=== PATIENT | female | born 1930 | race Caucasian/White ===

== ENCOUNTER 2017-10-01 13:16 | Emergency (ER) | payer MEDICARE, OTHER ==
[~2017-10-01] VITALS: Ht 149.9 cm; Wt 57.3 kg
[~2017-10-01 13:16] MED LIST: Z.0.NO CURRENT MEDS
[2017-10-01 13:19] VITALS: BP 160/68; PULSE 89; RESP 16; TEMP 98.4; O2SAT 96
--- NOTE | 2017-10-01 14:02 | RADRPT ---
EXAM DATE/TIME: 10/01/2017 13:48 [place] COMPARISON: [facility] SWALLOW W/SPEECH PATHOLOGY, March 04, 2016, 0:00. INDICATIONS : Cough for 2 weeks. MEDICAL HISTORY : None. SURGICAL HISTORY : None. ENCOUNTER: Initial ACUITY: 2 weeks PAIN SCORE: 1/10 LOCATION: Bilateral chest FINDINGS: The heart is normal in size. The mediastinal contours are within normal limits. There are advanced CO PD changes within the pulmonary parenchyma. There degenerative changes in the thoracic spine with a mild thoracolumbar scoliosis. CONCLUSION: 1. Advanced COPD changes. No focal or segmental pneumonia identified. Romeo Darby MD on October 01, 2017 at 14:00 Board Certified Radiologist. This report was verified electronically.
[2017-10-01 15:15] LABS: BASOPHIL % 0.7 % (0.0-2.0); HEMATOCRIT 32.4 % (35.0-46.0); LYMPH % 27.3 % (9.0-44.0); LYMPHOCYTE # 0.9 TH/MM3 (1.0-4.8); MEAN CELL VOLUME 54.6 FL (80.0-100.0); MEAN CORPUSCULAR HEMOGLOBIN 18.5 PG (27.0-34.0); MEAN CORPUSCULAR HGB CONC 33.8 % (32.0-36.0); MEAN PLATELET VOLUME 10.2 FL (7.0-11.0); MONO % 8.7 % (0.0-8.0); MONOCYTE # 0.3 TH/MM3 (0-0.9); NEUT % 63.3 % (16.0-70.0); PLATELET COUNT 170 TH/MM3 (150-450); RED BLOOD COUNT 5.93 MIL/MM3 (4.00-5.30); RED CELL DISTRIBUTION WIDTH 17.4 % (11.6-17.2); WHITE BLOOD COUNT 3.2 TH/MM3 (4.0-11.0)
[2017-10-01 15:55] LABS: ALBUMIN 3.9 GM/DL (3.4-5.0); ALKALINE PHOSPHATASE 60 U/L (45-117); ALT (GPT) 24 U/L (10-53); AST (GOT) 30 U/L (15-37); BLOOD UREA NITROGEN 27 MG/DL (7-18); CALCIUM 8.6 MG/DL (8.5-10.1); CHLORIDE 105 MEQ/L (98-107); CREATININE 1.01 MG/DL (0.50-1.00); GLOMERULAR FILTRATION RATE 52 ML/MIN (>89); GLUCOSE,RANDOM 96 MG/DL (74-106); SODIUM (NA) 138 MEQ/L (136-145); TOTAL BILIRUBIN ADULT 0.8 MG/DL (0.2-1.0); TOTAL PROTEIN 7.9 GM/DL (6.4-8.2)
[2017-10-01 16:25] LABS: KERATOCYTES OCC (NORMAL); OVALOCYTES 2+ (NORMAL)
[2017-10-01 17:15] VITALS: BP 210/95; PULSE 72; RESP 24; O2SAT 93; O2SAT 98
[2017-10-01] MEDS ORDERED: SODIUM CHLORID 0.9% 500 ML INJ 500 ML IV ONE (17:15)
[2017-10-01] MEDS ORDERED: SODIUM CHLORIDE 0.9% FLUSH 10 ML FLUSH IV FLUSH PRN (17:15)
--- NOTE | 2017-10-01 17:50 | PD ---
HPI Chief Complaint: Cold / Flu Symptoms Time Seen by Provider: 16:39 Travel History International Travel<30 days: No Contact w/Intl Traveler<30days: No Traveled to known affect area: No History of Present Illness HPI 87-year-old female presents the ED for evaluation of 2 week history of nonproductive cough, sinus congestion, rhinorrhea. Endorses accompanying nausea and a few episodes of watery diarrhea daily. She endorses fever of 99.9 by oral thermometer a few days ago. She denies ear pain, sore throat, chest pain, shortness of breath, palpitations, abdominal pain, dysuria. She did not receive this years flu shot. She states that she's been staying home to try to stay well. Daughter is at bedside and states that her mother's been very weak. PFSH Past Medical History Blood Disorders: Yes (THALACEMIA) Anxiety: Yes Cancer: No Cardiovascular Problems: No Cerebrovascular Accident: Yes (SUBDURAL HEMATOMA) Diminished Hearing: No Genitourinary: No Headaches: Yes Reproductive: No Respiratory: No Thyroid Disease: Yes Menopausal: Yes : 3 Para: 3 Past Surgical History Genitourinary Surgery: Yes (Hemorroid sx) Hysterectomy: Yes Neurologic Surgery: Yes (SUBDURAL HEMATOMA) Social History Alcohol Use: No Tobacco Use: No Substance Use: No Allergies-Medications (Allergen,Severity, Reaction): Coded Allergies: penicillin G (Unverified Allergy, Mild, 10/01/17) Reported Meds & Prescriptions Reported Meds & Active Scripts Active Tessalon Perles (Benzonatate) 100 Mg Cap 200 Mg PO TID PRN Keflex (Cephalexin) 500 Mg Cap 500 Mg PO Q12H 5 Days Review of Systems Except as stated in HPI: all other systems reviewed are Neg Physical Exam Narrative GENERAL: Well-nourished, well-developed petite, thin white female in no acute distress. SKIN: Focused skin assessment warm/dry. HEAD: Normocephalic. EYES: No scleral icterus. No injection or drainage. NECK: Supple, trachea midline. No JVD or lymphadenopathy. CARDIOVASCULAR: Regular rate and rhythm without murmurs, gallops, or rubs. RESPIRATORY: Breath sounds clear and equal bilaterally. No accessory muscle use. GASTROINTESTINAL: Abdomen soft, non-tender, nondistended. Active bowel sounds. MUSCULOSKELETAL: No cyanosis, or edema. Moves extremities spontaneously. BACK: Nontender without obvious deformity. No CVA tenderness. Data Data Last Documented VS Vital Signs Date Time Temp Pulse Resp B/P (MAP) Pulse Ox O2 Delivery O2 Flow Rate FiO2 10/01/17 20:11 68 18 168/96 (120) 98 Room Air 10/01/17 19:38 97.8 Orders Orders Complete Blood Count With Diff (10/01/17 13:31) Comprehensive Metabolic Panel (10/01/17 13:31) Lipase (10/01/17 13:31) Urinalysis - C+S If Indicated (10/01/17 13:31) Influenzae A/B Antigen (10/01/17 13:31) Chest, Pa & Lat (10/01/17 ) Electrocardiogram (10/01/17 ) Iv Access Insert/Monitor (10/01/17 17:13) Ecg Monitoring (10/01/17 17:13) Oximetry (10/01/17 17:13) Sodium Chloride 0.9% Flush (Ns Flush) (10/01/17 17:15) Sodium Chlorid 0.9% 500 Ml Inj (Ns 500 M (10/01/17 17:15) Urine Culture (10/01/17 17:40) Ceftriaxone Inj (Rocephin Inj) (10/01/17 18:30) Ed Discharge Order (10/01/17 19:25) Labs Laboratory Tests Test 10/01/17 14:40 10/01/17 17:40 White Blood Count 3.2 TH/MM3 Red Blood Count 5.93 MIL/MM3 Hemoglobin 11.0 GM/DL Hematocrit 32.4 % Mean Corpuscular Volume 54.6 FL Mean Corpuscular Hemoglobin 18.5 PG Mean Corpuscular Hemoglobin Concent 33.8 % Red Cell Distribution Width 17.4 % Platelet Count 170 TH/MM3 Mean Platelet Volume 10.2 FL Neutrophils (%) (Auto) 63.3 % Lymphocytes (%) (Auto) 27.3 % Monocytes (%) (Auto) 8.7 % Eosinophils (%) (Auto) 0.0 % Basophils (%) (Auto) 0.7 % Neutrophils # (Auto) 2.0 TH/MM3 Lymphocytes # (Auto) 0.9 TH/MM3 Monocytes # (Auto) 0.3 TH/MM3 Eosinophils # (Auto) 0.0 TH/MM3 Basophils # (Auto) 0.0 TH/MM3 CBC Comment AUTO DIFF Differential Comment AUTO DIFF CONFIRMED Ovalocytes 2+ Keratocytes OCC Blood Urea Nitrogen 27 MG/DL Creatinine 1.01 MG/DL Random Glucose 96 MG/DL Total Protein 7.9 GM/DL Albumin 3.9 GM/DL Calcium Level 8.6 MG/DL Alkaline Phosphatase 60 U/L Aspartate Amino Transf (AST/SGOT) 30 U/L Alanine Aminotransferase (ALT/SGPT) 24 U/L Total Bilirubin 0.8 MG/DL Sodium Level 138 MEQ/L Potassium Level 3.6 MEQ/L Chloride Level 105 MEQ/L Carbon Dioxide Level 26.0 MEQ/L Anion Gap 7 MEQ/L Estimat Glomerular Filtration Rate 52 ML/MIN Lipase 180 U/L Urine Color YELLOW Urine Turbidity CLOUDY Urine pH 5.5 Urine Specific Golden 1.025 Urine Protein 100 mg/dL Urine Glucose (UA) NEG mg/dL Urine Ketones 10 mg/dL Urine Occult Blood SMALL Urine Nitrite POS Urine Bilirubin NEG Urine Urobilinogen 2.0 MG/DL Urine Leukocyte Esterase SMALL Urine RBC 2 /hpf Urine WBC 7 /hpf Urine Squamous Epithelial Cells 20 /hpf Urine Amorphous Sediment FEW Urine Bacteria MANY /hpf Urine Hyaline Casts 5 /lpf Urine Mucus FEW /lpf Microscopic Urinalysis Comment CULTURE INDICATED MDM Medical Decision Making Medical Screen Exam Complete: Yes Emergency Medical Condition: Yes Medical Record Reviewed: Yes Differential Diagnosis Viral syndrome versus influenza versus pneumonia versus metabolic derangement versus dehydration versus infectious diarrhea versus other Narrative Course 87-year-old female presents the ED for evaluation of 2 week history of nonproductive cough, sinus congestion, rhinorrhea. Endorses accompanying nausea and a few episodes of watery diarrhea daily. She endorses fever of 99.9 by oral thermometer a few days ago. Patient is afebrile, pulse 89, BP 160/68 on presentation. Physical exam reveals a nontoxic-appearing elderly female in no acute distress. ENT exam is unremarkable. Chest CT AB. Abdomen soft and nontender. IV was established. Patient was administered 500 mL's normal saline. CBC: WBC 3.2, hemoglobin 11.0. CMP: BUN 27, creatinine 1.01. UA: Cloudy, nitrite positive, small leukocyte esterase, 7 WBCs, many bacteria. Culture indicated. I reviewed the patient's record. She has a history of thalassemia. I suggested that she follow-up with her primary care provider regarding the leukopenia found today. She was administered a gram of Rocephin IV. She is provided a short course of Keflex, and a few doses of Tessalon. She is instructed to take all medication as prescribed, follow with her primary care provider, return for worsening symptoms. The patient and her daughter indicated understanding of the instructions and are agreeable to the care plan. The patient is stable and discharged home. Diagnosis Primary Impression: Urinary tract infection Qualified Codes: N39.0 - Urinary tract infection, site not specified Additional Impression: Cough Referrals: Primary Care Physician Patient Instructions: Chronic Cough (ED), General Instructions, Urinary Tract Infection in Women (ED) Additional Instructions: Rest, hydrate. Take antibiotics until all pills are gone. Take Tessalon Perles as prescribed for cough. Follow-up with your primary care provider. Return to the ED for worsening symptoms or any urgent or emergent medical condition. Med/Other Pt SpecificInfo: Prescription(s) given Scripts Benzonatate (Tessalon Perles) 100 Mg Cap 200 MG PO TID Y for COUGH, #15 CAP 0 Refills Prov: Garrett Keene MD 10/01/17 Cephalexin (Keflex) 500 Mg Cap 500 MG PO Q12H for Infection for 5 Days, #10 CAP 0 Refills Prov: Garrett Keene MD 10/01/17 Disposition: 01 DISCHARGE HOME Condition: Stable Coty Escobedo Oct 01, 2017 17:50
[2017-10-01 18:12] LABS: AMORPHOUS SEDIMENT, URINE FEW; BACTERIA, URINE MANY /hpf; BLOOD, URINE SMALL (NEG); GLUCOSE,URINE NEG (NEG); HYALINE CAST, URINE 5 /lpf (RARE); KETONE, URINE 10 mg/dL (NEG); MUCUS URINE FEW /lpf (OCC); NITRITE,URINE POS (NEG); PH, URINE 5.5 (5.0-8.5); SQUAMOUS EPITHELIAL CELL URINE 20 /hpf (0-5); URINE COLOR YELLOW (YELLW/STRAW); URINE LEUKOCYTE ESTERASE SMALL (NEG)
[2017-10-01 18:18] LABS: BILIRUBIN, URINE NEG (NEG)
[2017-10-01] MEDS ORDERED: cefTRIAXone INJ 1,000 MG in SODIUM CHLORIDE 0.9% INJ 100 ML IV ONE (18:30)
[2017-10-01] MEDS ORDERED: CEPH-460 PO (19:09)
[2017-10-01] MEDS ORDERED: BENZ100 PO (19:09)
[2017-10-01 19:38] VITALS: BP 192/81; PULSE 79; RESP 18; TEMP 97.8; O2SAT 100
[2017-10-01 20:11] VITALS: BP 168/96; PULSE 68; RESP 18; O2SAT 98
--- NOTE | 2017-10-02 08:14 | EKG ---
Date Performed: 10/01/2017 Time Performed: 14:36:01 PTAGE: 87 years EKG: Sinus rhythm WITH SINUS ARRHYTHMIA NORMAL ECG PREVIOUS TRACING : 01/03/2010 14.45 Since the prior tracing, there has been no significant law DOCTOR: Lidia Chavez Interpretating Date/Time 10/02/2017 08:11:18
== END 2017-10-01 20:46 | disposition home or self-care (01) ==
LOC: NEPC 13:16
DX: N39.0 Urinary tract infection, site not specified (principal); B96.89 Other specified bacterial agents as the cause of diseases classified elsewhere; R05 Cough; D72.819 Decreased white blood cell count, unspecified; E07.9 Disorder of thyroid, unspecified
CPT/HCPCS: 71046; 80053; 81001; 83690; 85025; 87077; 87086; 87186; 87804; 93005; 96361; 96365; 99285; J0696; J7040